=== PATIENT | female | born 1955 | race Caucasian/White ===

== ENCOUNTER 2017-06-07 18:35 | Emergency (ER) | payer OTHER ==
[~2017-06-07] VITALS: Ht 170.2 cm; Wt 122.4 kg
[~2017-06-07 18:35] MED LIST: ADVIL200 MG OR; BACLOFEN10 MG PO; BUSPAR5 MG PO; CORRECTOL100 MG OR; CYMBALTA60 MG PO; DONEPEZIL5 MG PO; GABAPENTIN300 MG PO; GLUCOPHAGE1000 MG PO; GLYBURIDE/METFO1 TA1 PO; IBUPROFEN600 MG PO; LORTAB 10 PO; LORTAB 5 OR; LYRICA75 MG PO; MECLIZINE HCL25 MG PO; MELOXICAM7.5 MG PO; METFORMIN1000 MG PO; MIRALAX3350 NF PO; PERCOCET 5/325M1 TAB OR; PERCOCET 5/325M1 TAB PO; PRILOSEC40 MG PO; PROMETHAZINE25 M1 RE; PROVENTIL HFA INH; ROBAXIN-750750 MG PO; SPIRIVA IN; STOOL SOFTE1 PO; TENORMIN25 MG PO; TRAZODONE150 MG PO; TYLENOL500 MG OR; ULTRAM50 M1 PO; ZANAFLEX4 MG PO; ZOCOR10 MG PO; ZOFRAN8 MG PO; ZOLOFT100 MG PO; ZOVIRAX400 MG PO
[2017-06-07] MEDS ORDERED: TRAZODONE50 MG PO (19:01)
[2017-06-07] MEDS ORDERED: AMOXICILLIN500 MG PO (19:20)
[2017-06-07] MEDS ORDERED: LORTAB 10-325 M1 TAB PO (19:20)
[2017-06-07 19:29] VITALS: BP 129/71
== END 2017-06-07 19:29 | disposition home or self-care (01) | DRG 159 ==
LOC: ED 18:35
DX: K04.7 Periapical abscess without sinus (principal); I10 Essential (primary) hypertension; K44.9 Diaphragmatic hernia without obstruction or gangrene; K59.00 Constipation, unspecified; E11.9 Type 2 diabetes mellitus without complications; Z85.43 Personal history of malignant neoplasm of ovary; Z85.048 Personal history of other malignant neoplasm of rectum, rectosigmoid junction, and anus; Z92.21 Personal history of antineoplastic chemotherapy

== ENCOUNTER 2019-05-26 13:13 | Inpatient (IN) | payer OTHER ==
[~2019-05-26] VITALS: Ht 170.2 cm; Wt 116.8 kg
[~2019-05-26 13:13] MED LIST changes: +AMOXICILLIN500 MG PO; +LORTAB 10-325 M1 TAB PO; +TRAZODONE50 MG PO
[2019-05-26 15:00] LABS: HEMATOCRIT 44.8 % (37.0-47.0); HEMOGLOBIN 14.4 g/dl (12.0-16.0); IMMATURE GRANULOCYTES 0.5 % (0.0-5.0); MEAN CELL VOLUME 92.4 fL CALC (80.0-100.0); MEAN CORPUSCULAR HGB 29.7 pG CALC (26.0-32.0); MEAN CORPUSCULAR HGB CONC 32.1 g/L CALC (32.0-36.0); NEUT# 13.54 thou/uL (2.00-7.15); RED BLOOD COUNT 4.85 mill/uL (4.20-5.60); RED CELL DISTRI WIDTH 13.1 % (11.5-15.5)
[2019-05-26 15:23] LABS: ALKALINE PHOSPHATASE 105 u/l (38-126); BUN 9 mg/dL (8-23); BUN/CREATININE RATIO 16 (12-20 (CALC)); CHLORIDE 101 mmol/l (95-108); CREATININE 0.6 mg/dL (0.5-1.0); GFR > 60 ML/MIN (>=60 (CALC)); GFR FOR AFR.AMER. > 60 ML/MIN (>=60 (CALC)); POTASSIUM 4.4 mmol/l (3.5-5.1); SGOT/AST 30 u/l (9-36); SODIUM 141 mmol/l (137-146); TOTAL PROTEIN 8.8 g/dL (6.3-8.2)
[2019-05-26 15:24] LABS: ANION GAP 19 (6-22 (CALC)); BILIRUBIN, TOTAL 0.5 mg/dL (0.0-1.4); CARBON DIOXIDE 25 mmol/l (22-30)
[2019-05-26 15:30] LABS: D-DIMER 0.92 mg/L (0.19-0.60); PROTHROMBIN TIME 10.8 SECONDS (9.0-12.5)
[2019-05-26 15:34] LABS: MYOGLOBIN 241 ng/mL (0 - 62)
[2019-05-26 15:48] LABS: URINE BILIRUBIN - DIPSTICK NEGATIVE (NEGATIVE); URINE BLOOD DIPSTICK NEGATIVE (NEGATIVE); URINE COLOR YELLOW; URINE GLUCOSE - DIPSTICK NEGATIVE (NEGATIVE); URINE KETONE 15 mg/dL (NEGATIVE); URINE LEUK ESTERASE TRACE (NEGATIVE); URINE NITRITE - DIPSTICK NEGATIVE (Negative); URINE PH 5.5 (4.5-8.0); URINE PROTEIN - DIPSTICK TRACE mg/dL (NEG-TRACE); URINE SPECIFIC GRAVITY <=1.005; URINE UROBILINOGEN - DIPSTICK 0.2 E.U./dL (0.2)
[2019-05-26 20:37] VITALS: BP 136/77
[2019-05-26] MEDS ORDERED: GABAPENTIN300 M2 PO (20:57)
[2019-05-26] MEDS ORDERED: TENORMIN PO (20:58)
[2019-05-26] MEDS ORDERED: ASPIRIN 81 LOW81 MG PO (20:59)
[2019-05-26] MEDS ORDERED: LISINOP/HCTZ1 TAB PO (20:59)
[2019-05-26] MEDS ORDERED: BACLOFEN20 MG PO (21:00)
[2019-05-26] MEDS ORDERED: INVOKANA300 MG PO (21:01)
[2019-05-26] MEDS ORDERED: TRAZODONE HYDR150 MG PO (21:02)
[2019-05-26] MEDS ORDERED: GLYBURIDE/METFO1 TA1 PO (21:02)
[2019-05-26] MEDS ORDERED: MECLIZINE12.5 M1 PO (21:05)
[2019-05-26] MEDS ORDERED: METRONIDAZO1 PO (21:05)
[2019-05-26] MEDS ORDERED: [UNRECOGNIZED DRUG - CODE] PO (21:06)
[2019-05-26] MEDS ORDERED: ZOVIRAX400 MG PO (21:07)
[2019-05-26] MEDS ORDERED: ZOFRAN8 MG PO (21:08)
[2019-05-26] MEDS ORDERED: LIPITOR40 M1 PO (21:11)
[2019-05-26] MEDS ORDERED: RANITIDINE150 M1 PO (21:12)
[2019-05-26] MEDS ORDERED: TOPIRAMATE PO (21:12)
[2019-05-26] MEDS ORDERED: IBUPROFEN600 MG PO (21:13)
[2019-05-27] VITALS: BP 122/50
[2019-05-27 04:00] VITALS: BP 118/43
[2019-05-27 05:47] LABS: HEMATOCRIT 41.4 % (37.0-47.0); HEMOGLOBIN 13.1 g/dl (12.0-16.0); IMMATURE GRANULOCYTES 0.7 % (0.0-5.0); MEAN CELL VOLUME 92.8 fL CALC (80.0-100.0); MEAN CORPUSCULAR HGB 29.4 pG CALC (26.0-32.0); MEAN CORPUSCULAR HGB CONC 31.6 g/L CALC (32.0-36.0); NEUT# 17.69 thou/uL (2.00-7.15); RED BLOOD COUNT 4.46 mill/uL (4.20-5.60); RED CELL DISTRI WIDTH 13.2 % (11.5-15.5)
[2019-05-27 06:00] LABS: ANION GAP 18 (6-22 (CALC)); BUN 13 mg/dL (8-23); BUN/CREATININE RATIO 19 (12-20 (CALC)); CARBON DIOXIDE 24 mmol/l (22-30); CHLORIDE 100 mmol/l (95-108); CREATININE 0.7 mg/dL (0.5-1.0); GFR > 60 ML/MIN (>=60 (CALC)); GFR FOR AFR.AMER. > 60 ML/MIN (>=60 (CALC)); SODIUM 138 mmol/l (137-146)
[2019-05-27 07:19] VITALS: BP 125/57
[2019-05-27 11:20] VITALS: BP 114/62
[2019-05-27 15:40] VITALS: BP 135/62
[2019-05-27 19:35] VITALS: BP 135/73
[2019-05-28] VITALS (7 sets, daily range): BP systolic 94–145; BP diastolic 43–75
[2019-05-28 05:26] LABS: HEMATOCRIT 38.5 % (37.0-47.0); HEMOGLOBIN 12.3 g/dl (12.0-16.0); IMMATURE GRANULOCYTES 0.8 % (0.0-5.0); MEAN CELL VOLUME 93.9 fL CALC (80.0-100.0); MEAN CORPUSCULAR HGB CONC 31.9 g/L CALC (32.0-36.0); RED CELL DISTRI WIDTH 13.6 % (11.5-15.5)
[2019-05-28 05:32] LABS: ANION GAP 15 (6-22 (CALC)); BUN 18 mg/dL (8-23); BUN/CREATININE RATIO 24 (12-20 (CALC)); CARBON DIOXIDE 26 mmol/l (22-30); CHLORIDE 104 mmol/l (95-108); CREATININE 0.8 mg/dL (0.5-1.0); GFR > 60 ML/MIN (>=60 (CALC)); GFR FOR AFR.AMER. > 60 ML/MIN (>=60 (CALC)); POTASSIUM 4.4 mmol/l (3.5-5.1); SODIUM 140 mmol/l (137-146)
[2019-05-28 06:05] LABS: MANUAL DIFFERENTIAL YES; PLATELET COUNT 526 thou/uL (130-400)
[2019-05-28 06:07] LABS: BAND 2 % (0-8)
[2019-05-28 19:51] LABS: C. DIFFICILE TOXIN A&B NEGATIVE (NEGATIVE)
[2019-05-29 04:10] VITALS: BP 110/53
[2019-05-29 05:53] LABS: HEMATOCRIT 40.1 % (37.0-47.0); HEMOGLOBIN 12.7 g/dl (12.0-16.0); IMMATURE GRANULOCYTES 0.8 % (0.0-5.0); MEAN CELL VOLUME 94.8 fL CALC (80.0-100.0); MEAN CORPUSCULAR HGB CONC 31.7 g/L CALC (32.0-36.0); NEUT# 18.95 thou/uL (2.00-7.15); RED BLOOD COUNT 4.23 mill/uL (4.20-5.60); RED CELL DISTRI WIDTH 13.6 % (11.5-15.5)
[2019-05-29 06:04] LABS: ANION GAP 14 (6-22 (CALC)); BUN 17 mg/dL (8-23); BUN/CREATININE RATIO 27 (12-20 (CALC)); CARBON DIOXIDE 26 mmol/l (22-30); CHLORIDE 105 mmol/l (95-108); CREATININE 0.6 mg/dL (0.5-1.0); GFR > 60 ML/MIN (>=60 (CALC)); GFR FOR AFR.AMER. > 60 ML/MIN (>=60 (CALC)); MAGNESIUM 1.8 mg/dL (1.6-2.3); POTASSIUM 5.1 mmol/l (3.5-5.1); SODIUM 140 mmol/l (137-146)
[2019-05-29 07:50] VITALS: BP 93/43
[2019-05-29 10:45] VITALS: BP 132/53
[2019-05-29 15:15] VITALS: BP 105/69
[2019-05-29 19:39] VITALS: BP 124/63
[2019-05-30 00:45] VITALS: BP 130/68
[2019-05-30 04:32] VITALS: BP 109/66
[2019-05-30 05:43] LABS: HEMATOCRIT 41.1 % (37.0-47.0); MEAN CELL VOLUME 93.4 fL CALC (80.0-100.0); MEAN CORPUSCULAR HGB 29.5 pG CALC (26.0-32.0); MEAN CORPUSCULAR HGB CONC 31.6 g/L CALC (32.0-36.0); RED BLOOD COUNT 4.4 mill/uL (4.20-5.60); RED CELL DISTRI WIDTH 13.3 % (11.5-15.5)
[2019-05-30 05:58] LABS: ANION GAP 17 (6-22 (CALC)); BUN 16 mg/dL (8-23); BUN/CREATININE RATIO 26 (12-20 (CALC)); CARBON DIOXIDE 25 mmol/l (22-30); CHLORIDE 102 mmol/l (95-108); CREATININE 0.6 mg/dL (0.5-1.0); GFR > 60 ML/MIN (>=60 (CALC)); GFR FOR AFR.AMER. > 60 ML/MIN (>=60 (CALC)); POTASSIUM 4.7 mmol/l (3.5-5.1); SODIUM 139 mmol/l (137-146)
[2019-05-30 08:50] VITALS: BP 147/68
[2019-05-30] MEDS ORDERED: BIOTUSSIN PO (10:54)
[2019-05-30] MEDS ORDERED: METRONIDAZOL500 MG PO (10:55)
[2019-05-30] MEDS ORDERED: Levaquin PO (10:55)
[2019-05-30] MEDS ORDERED: PREDNISONE10 MG PO (10:58)
[2019-05-30 11:10] VITALS: BP 107/68
== END 2019-05-30 13:39 | disposition home or self-care (01) | DRG 190 ==
LOC: ED 13:13 → ED-I 17:07 → ED 17:14 → MS2 17:15
PROVIDERS: Internal Medicine; ADMIT Internal Medicine; ATTEND Internal Medicine
DX: J44.1 Chronic obstructive pulmonary disease with (acute) exacerbation (principal); J96.01 Acute respiratory failure with hypoxia; J20.9 Acute bronchitis, unspecified; J44.0 Chronic obstructive pulmonary disease with (acute) lower respiratory infection; I10 Essential (primary) hypertension; E11.40 Type 2 diabetes mellitus with diabetic neuropathy, unspecified; K52.9 Noninfective gastroenteritis and colitis, unspecified; G47.33 Obstructive sleep apnea (adult) (pediatric); D72.829 Elevated white blood cell count, unspecified; D47.3 Essential (hemorrhagic) thrombocythemia; Z79.899 Other long term (current) drug therapy; Z79.4 Long term (current) use of insulin; Z86.73 Personal history of transient ischemic attack (TIA), and cerebral infarction without residual deficits; Z85.43 Personal history of malignant neoplasm of ovary; Z85.048 Personal history of other malignant neoplasm of rectum, rectosigmoid junction, and anus
CPT/HCPCS: Q9967

== ENCOUNTER 2020-11-20 16:02 | Observation (INO) | payer OTHER ==
[~2020-11-20] VITALS: Ht 170.2 cm; Wt 122.0 kg
[~2020-11-20 16:02] MED LIST changes: +ASPIRIN 81 LOW81 MG PO; +BACLOFEN20 MG PO; +BIOTUSSIN PO; +GABAPENTIN300 M2 PO; +INVOKANA300 MG PO; +LIPITOR40 M1 PO; +LISINOP/HCTZ1 TAB PO; +Levaquin PO; +MECLIZINE12.5 M1 PO; +METRONIDAZO1 PO; +METRONIDAZOL500 MG PO; +PREDNISONE10 MG PO; +RANITIDINE150 M1 PO; +TENORMIN PO; +TOPIRAMATE PO; +TRAZODONE HYDR150 MG PO; +[UNRECOGNIZED DRUG - CODE] PO
[2020-11-20 16:54] LABS: HEMATOCRIT 43.7 % (37.0-47.0); HEMOGLOBIN 13.9 g/dl (12.0-16.0); IMMATURE GRANULOCYTES 0.4 % (0.0-5.0); MEAN CELL VOLUME 94.8 fL CALC (80.0-100.0); MEAN CORPUSCULAR HGB 30.2 pG CALC (26.0-32.0); MEAN CORPUSCULAR HGB CONC 31.8 g/dL CAL (32.0-36.0); NEUT# 12.5 thou/uL (2.00-7.15); RED BLOOD COUNT 4.61 mill/uL (4.20-5.60); RED CELL DISTRI WIDTH 13.2 % (11.5-15.5)
[2020-11-20 17:27] LABS: ALBUMIN 5.1 g/dL (3.2-5.0); ALKALINE PHOSPHATASE 82 u/l (38-126); ANION GAP 17 (6-22 (CALC)); BILIRUBIN, TOTAL 0.6 mg/dL (0.0-1.4); BUN 14 mg/dL (8-23); BUN/CREATININE RATIO 18 (12-20 (CALC)); CARBON DIOXIDE 23 mmol/l (22-30); CHLORIDE 102 mmol/l (95-108); CREATININE 0.8 mg/dL (0.5-1.0); GFR > 60 ML/MIN (>=60 (CALC)); GFR FOR AFR.AMER. > 60 ML/MIN (>=60 (CALC)); POTASSIUM 3.8 mmol/l (3.5-5.1); SGOT/AST 36 u/l (9-36); SODIUM 138 mmol/l (137-146); TOTAL PROTEIN 8.9 g/dL (6.3-8.2)
[2020-11-20 17:39] LABS: MYOGLOBIN 47 ng/mL (0 - 62)
[2020-11-20 19:44] LABS: URINE BILIRUBIN - DIPSTICK NEGATIVE (NEGATIVE); URINE BLOOD DIPSTICK NEGATIVE (NEGATIVE); URINE COLOR YELLOW; URINE GLUCOSE - DIPSTICK NEGATIVE (NEGATIVE); URINE KETONE NEGATIVE (NEGATIVE); URINE LEUK ESTERASE NEGATIVE (NEGATIVE); URINE NITRITE - DIPSTICK NEGATIVE (Negative); URINE PROTEIN - DIPSTICK NEGATIVE (NEG-TRACE); URINE UROBILINOGEN - DIPSTICK 0.2 E.U./dL (0.2)
[2020-11-20 23:00] VITALS: BP 158/87
[2020-11-21 04:30] VITALS: BP 120/75
[2020-11-21 06:14] LABS: HEMOGLOBIN 12.8 g/dl (12.0-16.0); IMMATURE GRANULOCYTES 0.4 % (0.0-5.0); MEAN CELL VOLUME 95.9 fL CALC (80.0-100.0); MEAN CORPUSCULAR HGB 30.7 pG CALC (26.0-32.0); NEUT# 8.82 thou/uL (2.00-7.15); RED BLOOD COUNT 4.17 mill/uL (4.20-5.60); RED CELL DISTRI WIDTH 13.2 % (11.5-15.5)
[2020-11-21 06:39] LABS: ALKALINE PHOSPHATASE 65 u/l (38-126); ANION GAP 14 (6-22 (CALC)); BILIRUBIN, TOTAL 0.7 mg/dL (0.0-1.4); BUN 13 mg/dL (8-23); BUN/CREATININE RATIO 18 (12-20 (CALC)); CALCULATED LDLCHOLESTEROL 26 mg/dL (62-129 (CALC)); CARBON DIOXIDE 25 mmol/l (22-30); CHLORIDE 103 mmol/l (95-108); CHOLESTEROL HDL RATIO 2.4 (<4.4 (CALC)); CREATININE 0.8 mg/dL (0.5-1.0); GFR > 60 ML/MIN (>=60 (CALC)); GFR FOR AFR.AMER. > 60 ML/MIN (>=60 (CALC)); HDL CHOLESTEROL 42 mg/dL (>=40); MAGNESIUM 1.6 mg/dL (1.6-2.3); POTASSIUM 3.7 mmol/l (3.5-5.1); SGOT/AST 30 u/l (9-36); SODIUM 137 mmol/l (137-146); TOTAL CHOLESTEROL 99 mg/dl (0-199); TOTAL TRIGLYCERIDES 154 mg/dl (30-149); VLDL CHOLESTROL 31 mg/dl (1-41 (CALC))
[2020-11-21 06:41] LABS: TOTAL PROTEIN 6.9 g/dL (6.3-8.2)
[2020-11-21 07:36] VITALS: BP 100/62
[2020-11-21 09:12] LABS: AMYLASE 70 u/l (30-110); LIPASE 146 u/l (23-300)
[2020-11-21 11:12] VITALS: BP 123/78
[2020-11-21 16:11] VITALS: BP 108/56
[2020-11-21 20:00] VITALS: BP 98/59
[2020-11-21 23:50] VITALS: BP 82/50
[2020-11-22 03:50] VITALS: BP 96/59
[2020-11-22 05:21] LABS: ALBUMIN 3.8 g/dL (3.2-5.0); ALKALINE PHOSPHATASE 56 u/l (38-126); ANION GAP 14 (6-22 (CALC)); BILIRUBIN, TOTAL 0.5 mg/dL (0.0-1.4); BUN 12 mg/dL (8-23); BUN/CREATININE RATIO 17 (12-20 (CALC)); CARBON DIOXIDE 24 mmol/l (22-30); CHLORIDE 106 mmol/l (95-108); CREATININE 0.7 mg/dL (0.5-1.0); GFR > 60 ML/MIN (>=60 (CALC)); GFR FOR AFR.AMER. > 60 ML/MIN (>=60 (CALC)); POTASSIUM 3.7 mmol/l (3.5-5.1); SGOT/AST 36 u/l (9-36); SODIUM 139 mmol/l (137-146); TOTAL PROTEIN 6.5 g/dL (6.3-8.2)
[2020-11-22 05:33] LABS: HEMATOCRIT 38.2 % (37.0-47.0); HEMOGLOBIN 12.2 g/dl (12.0-16.0); IMMATURE GRANULOCYTES 0.4 % (0.0-5.0); MEAN CELL VOLUME 94.1 fL CALC (80.0-100.0); MEAN CORPUSCULAR HGB CONC 31.9 g/dL CAL (32.0-36.0); NEUT# 7.67 thou/uL (2.00-7.15); RED BLOOD COUNT 4.06 mill/uL (4.20-5.60)
[2020-11-22 08:30] VITALS: BP 115/65
[2020-11-22 11:45] VITALS: BP 90/50
[2020-11-22] MEDS ORDERED: MECLIZINE25 MG PO (12:08)
[2020-11-22] MEDS ORDERED: PROTONIX20 MG PO (12:08)
== END 2020-11-22 13:42 | disposition home or self-care (01) ==
LOC: ED 16:02 → ED-I 21:31 → ED 21:42 → MS2 21:43 → ED 22:05 → MS2 22:05
PROVIDERS: Emergency Medicine; Nurse Practitioner; ADMIT Internal Medicine; ATTEND Internal Medicine
DX: R55 Syncope and collapse (principal); R42 Dizziness and giddiness; C95.10 Chronic leukemia of unspecified cell type not having achieved remission; K52.9 Noninfective gastroenteritis and colitis, unspecified; R19.7 Diarrhea, unspecified; R06.02 Shortness of breath; I10 Essential (primary) hypertension; E11.40 Type 2 diabetes mellitus with diabetic neuropathy, unspecified; Z86.73 Personal history of transient ischemic attack (TIA), and cerebral infarction without residual deficits; Z85.43 Personal history of malignant neoplasm of ovary; Z85.048 Personal history of other malignant neoplasm of rectum, rectosigmoid junction, and anus; Z20.822 Contact with and (suspected) exposure to COVID-19
CPT/HCPCS: G0378; Q9967; S0164

== ENCOUNTER 2021-03-18 11:13 | Observation (INO) | payer OTHER ==
[~2021-03-18] VITALS: Ht 170.2 cm; Wt 125.0 kg
[~2021-03-18 11:13] MED LIST changes: +MECLIZINE25 MG PO; +PROTONIX20 MG PO
--- NOTE | 2021-03-18 11:16 | NUR ---
TO ROOM VIA WHEELCHAIR IN STABLE CONDITION
[2021-03-18 11:40] LABS: HEMATOCRIT 42.6 % (37.0-47.0); HEMOGLOBIN 13.8 g/dl (12.0-16.0); IMMATURE GRANULOCYTES 0.4 % (0.0-5.0); MEAN CELL VOLUME 94.7 fL CALC (80.0-100.0); MEAN CORPUSCULAR HGB 30.7 pG CALC (26.0-32.0); MEAN CORPUSCULAR HGB CONC 32.4 g/dL CAL (32.0-36.0); NEUT# 13.46 thou/uL (2.00-7.15); RED BLOOD COUNT 4.5 mill/uL (4.20-5.60); RED CELL DISTRI WIDTH 12.7 % (11.5-15.5)
[2021-03-18 12:08] LABS: ALBUMIN 4.2 g/dL (3.2-5.0); ALKALINE PHOSPHATASE 84 u/l (38-126); ANION GAP 13 (6-22 (CALC)); BILIRUBIN, TOTAL 0.4 mg/dL (0.0-1.4); BUN 12 mg/dL (8-23); BUN/CREATININE RATIO 19 (12-20 (CALC)); CARBON DIOXIDE 28 mmol/l (22-30); CHLORIDE 100 mmol/l (95-108); CREATININE 0.7 mg/dL (0.5-1.0); GFR > 60 ML/MIN (>=60 (CALC)); GFR FOR AFR.AMER. > 60 ML/MIN (>=60 (CALC)); LIPASE 179 u/l (23-300); POTASSIUM 4.3 mmol/l (3.5-5.1); SGOT/AST 38 u/l (9-36); SODIUM 137 mmol/l (137-146); TOTAL PROTEIN 7.4 g/dL (6.3-8.2)
--- NOTE | 2021-03-18 13:50 | NUR ---
SBAR PRINTED TO FLOOR
--- NOTE | 2021-03-18 14:21 | NUR ---
ROOM ASSIGNMENT GIVEN AND ANNOUNCED AT NURSING STATION.
--- NOTE | 2021-03-18 15:05 | NUR ---
PATIENT TO ULTRASOUND, AAOX4, NO DISTRESS.
--- NOTE | 2021-03-18 15:08 | NUR ---
BED ASSIGNMENT RECEIVED.
--- NOTE | 2021-03-18 15:41 | NUR ---
REPORT CALLED TO GINO WEI
[2021-03-18 16:02] VITALS: BP 126/74
--- NOTE | 2021-03-18 16:12 | NUR ---
REPORT RECEIVED FROM MEHRDAD IN ED, PT ARRIVED ON UNIT @ 1605 TRANSPORTED VIA W/C BY ED STAFF. ALERT AND ORIENTED X 4, C/O SEVERE CRAMPING ABD PAIN @ 8/10 THAT AGGRAVATES WITH MOVEMENT, SETTLED IN BED AND ORIENTED TO ROOM AND CALL GARCIA, VITAL SIGNS MEASURED AND RECORDRD, ARM BANDS IN PLACE, CALL GARCIA IN REACH.
[2021-03-18] MEDS ORDERED: VITAMIN B COMPL1 TAB (16:35)
[2021-03-18] MEDS ORDERED: VITAMIN D PO (16:37)
[2021-03-18] MEDS ORDERED: MULTIVITAMI9 PO (16:38)
[2021-03-18] MEDS ORDERED: METFORMIN HCL1000 MG PO (16:45)
[2021-03-18] MEDS ORDERED: SPIRIVA HANDIH18 MCG IN (16:49)
[2021-03-18] MEDS ORDERED: PROAIR HFA IN (16:50)
[2021-03-18] MEDS ORDERED: CVS FLUTICASON50 MCG (16:54)
[2021-03-18] MEDS ORDERED: ACYCLOVIR400 MG PO (16:55)
[2021-03-18 19:00] VITALS: BP 119/64
--- NOTE | 2021-03-18 20:00 | NUR ---
PHYSICAL ASSESMENT COMPLETE. PT CURRENTLY C/O OF 07/12 PAIN.MEDICATED WITH PRN PAIN MEDICATION AND ANTI NAUSEA MEDICATION. PT WAITING FOR CT SCAN WITH CONTRAST. PT VOMITTED, 200CC EMESIS PLAN OF CARE REVIEWED, PT DENIES QUESTIONS, VERBALIZES UNDERSTANDING. ITEMS WITHIN REACH, BED LOCKED IN LOW POSITION W/ BEDRAILS UP X2. CALL GARCIA WITHIN REACH, AGREES TO CALL PRN.
--- NOTE | 2021-03-18 22:21 | NUR ---
PT STILL HAS OVERWHELMING NAUSEA. WILL HOLD ORL MEDICATION AT THIS TIME. WAITING FOR RESULTS OF CT SCAN WITH CONTRAST. WILL CONTINUE TO MONITOR.
--- NOTE | 2021-03-18 23:24 | NUR ---
CT SCAN WITH ORAL CONTRAST REVEALED THE POSSIBILITY OF A SMALL BOWEL OBSTRUCTION. PT WAS SLEEPING. PT STATES HER PAIN IS CONTROLLED AT THIS TIME AND WILL CALL PRN. WILL CONTINUE TO MONITOR.
--- NOTE | 2021-03-19 00:45 | NUR ---
PT MEDICATED FOR PAIN. C/O OF SOME DIARRHEA. RESPIRATIONS REGULAR AND UNLABORED. ITEMS REMAIN WITHIN REACH, CALL GARCIA REMAINS WITHIN REACH. BED REMAINS LOCKED AND IN LOW POSITION WITH BEDRAILS UP X2. WILL CONTINUE TO MONITOR.
[2021-03-19 04:00] VITALS: BP 104/60
--- NOTE | 2021-03-19 04:19 | NUR ---
PT RESTING IN BED, NO SIGNS OF DISTRESS NOTED, RESP EVEN AND UNLABORED. PT VOICES NO NEEDS OR COMPLAINTS AT THIS TIME. CALL LIGHT IN REACH, CONTINUE TO MONITOR.
--- NOTE | 2021-03-19 05:35 | NUR ---
PTS PAIN HAS SUBSIDED. NO C/O OF PAIN IN THIS AM. WILL CONTINUE TO MONITOR.
[2021-03-19 05:42] LABS: HEMATOCRIT 38.4 % (37.0-47.0); HEMOGLOBIN 12.5 g/dl (12.0-16.0); MEAN CELL VOLUME 95.3 fL CALC (80.0-100.0); MEAN CORPUSCULAR HGB CONC 32.6 g/dL CAL (32.0-36.0); RED BLOOD COUNT 4.03 mill/uL (4.20-5.60); RED CELL DISTRI WIDTH 12.8 % (11.5-15.5)
[2021-03-19 05:54] LABS: ALBUMIN 3.5 g/dL (3.2-5.0); ALKALINE PHOSPHATASE 64 u/l (38-126); ANION GAP 11 (6-22 (CALC)); BILIRUBIN, TOTAL 0.3 mg/dL (0.0-1.4); BUN 12 mg/dL (8-23); BUN/CREATININE RATIO 19 (12-20 (CALC)); CARBON DIOXIDE 25 mmol/l (22-30); CHLORIDE 104 mmol/l (95-108); CREATININE 0.6 mg/dL (0.5-1.0); GFR > 60 ML/MIN (>=60 (CALC)); GFR FOR AFR.AMER. > 60 ML/MIN (>=60 (CALC)); MAGNESIUM 1.6 mg/dL (1.6-2.3); POTASSIUM 4.1 mmol/l (3.5-5.1); SGOT/AST 34 u/l (9-36); SODIUM 137 mmol/l (137-146); TOTAL PROTEIN 6.2 g/dL (6.3-8.2)
--- NOTE | 2021-03-19 07:13 | NUR ---
PT CONSENTED TO RECEIVE PNEUMONIA VAX. HAD PNEUMOVAX IN 2018, NOT INDICATED UNTIL AGE 67.
--- NOTE | 2021-03-19 07:59 | NUR ---
Pt was screened by [facility]. No [facility] services warranted at this time.
[2021-03-19 08:03] VITALS: BP 147/75
[2021-03-19 08:13] LABS: URINE BILIRUBIN - DIPSTICK NEGATIVE (NEGATIVE); URINE BLOOD DIPSTICK NEGATIVE (NEGATIVE); URINE COLOR YELLOW; URINE GLUCOSE - DIPSTICK NEGATIVE (NEGATIVE); URINE KETONE NEGATIVE (NEGATIVE); URINE LEUK ESTERASE NEGATIVE (NEGATIVE); URINE PH 5.5 (4.5-8.0); URINE PROTEIN - DIPSTICK NEGATIVE (NEG-TRACE); URINE SPECIFIC GRAVITY 1.025; URINE UROBILINOGEN - DIPSTICK 0.2 E.U./dL (0.2)
[2021-03-19 08:14] LABS: URINE NITRITE - DIPSTICK NEGATIVE (Negative)
[2021-03-19 08:15] VITALS: BP 133/78
--- NOTE | 2021-03-19 08:15 | NUR ---
PATIENT IS RESTING IN SEMI-FOWLERS IN BED. ASSESSMENT DONE. PATIENT IS ALERT AND ORIENT X3. PATIENT STATED PAIN IN ABD 6/10 BUT REFUSED PAIN MEDICATION AT THIS TIME. PATIENT IS NPO. IVF INFUSING WELL. SAFETY PRECAUTIONS REINFORCED AND CALL LIGHT IN REACH.
--- NOTE | 2021-03-19 11:13 | NUR ---
Patient was screened for PT services, patient is not appropriate for Physical Therapy at this time.
--- NOTE | 2021-03-19 11:41 | NUR ---
PATIENT IS RESTING ON HER LEFT SIDE IN BED WITH NO DISTRESS NOTED. PATIENT DENIES PAIN OR NEEDS AT THIS TIME. CALL LIGHT IN REACH.
[2021-03-19 15:12] VITALS: BP 132/75
--- NOTE | 2021-03-19 16:02 | NUR ---
PATIENT IS RESTING ON HER RIGHT SIDE WITH NO DISTRESS NOTED. PATIENT DENIES PAIN OR NEEDS AT THIS TIME. CALL LIGHT IN REACH.
[2021-03-19 19:00] VITALS: BP 130/76
--- NOTE | 2021-03-19 20:17 | NUR ---
PHYSICAL ASSESMENT COMPLETE. PT CURRENTLY DENIES PAIN OR DISCOMFORT. SCHEDULED MEDICATIONS AND PRN MEDICATION ADMINISTERED, SEE E-MAR. PT DENIES ANY NEEDS AT THIS TIME. PLAN OF CARE REVIEWED, PT DENIES QUESTIONS, VERBALIZES UNDERSTANDING. ITEMS WITHIN REACH, BED LOCKED IN LOW POSITION W/ BEDRAILS UP X2. CALL GARCIA WITHIN REACH, AGREES TO CALL PRN.
--- NOTE | 2021-03-20 | NUR ---
PT LAYING IN BED WITH EYES CLOSED, APPEARS TO BE SLEEPING, APPEARS COMFORTABLE AND IN NO DISTRESS. RESPIRATIONS REGULAR AND UNLABORED. ITEMS REMAIN WITHIN REACH, CALL GARCIA REMAINS WITHIN REACH. BED REMAINS LOCKED AND IN LOW POSITION WITH BEDRAILS UP X2. WILL CONTINUE TO MONITOR.
[2021-03-20 04:00] VITALS: BP 117/62
[2021-03-20 05:06] LABS: ALBUMIN 3.3 g/dL (3.2-5.0); ALKALINE PHOSPHATASE 61 u/l (38-126); ANION GAP 10 (6-22 (CALC)); BILIRUBIN, TOTAL 0.2 mg/dL (0.0-1.4); BUN 7 mg/dL (8-23); BUN/CREATININE RATIO 11 (12-20 (CALC)); CARBON DIOXIDE 27 mmol/l (22-30); CHLORIDE 105 mmol/l (95-108); CREATININE 0.6 mg/dL (0.5-1.0); GFR > 60 ML/MIN (>=60 (CALC)); GFR FOR AFR.AMER. > 60 ML/MIN (>=60 (CALC)); HEMATOCRIT 37.3 % (37.0-47.0); HEMOGLOBIN 11.8 g/dl (12.0-16.0); IMMATURE GRANULOCYTES 0.1 % (0.0-5.0); MEAN CELL VOLUME 97.1 fL CALC (80.0-100.0); MEAN CORPUSCULAR HGB 30.7 pG CALC (26.0-32.0); MEAN CORPUSCULAR HGB CONC 31.6 g/dL CAL (32.0-36.0); NEUT# 8.09 thou/uL (2.00-7.15); POTASSIUM 3.8 mmol/l (3.5-5.1); RED BLOOD COUNT 3.84 mill/uL (4.20-5.60); SGOT/AST 51 u/l (9-36); SODIUM 139 mmol/l (137-146); TOTAL PROTEIN 5.9 g/dL (6.3-8.2)
[2021-03-20 07:22] VITALS: BP 116/46
--- NOTE | 2021-03-20 08:35 | NUR ---
SHIFT CHANGE REPORT, PT AWAKE ALERT AND ORIENTED, C/O ACHING HEADACHE @ 8/10 BUT WAS GIVEN TYLENOL EARLIER, IVF INFUSING, CALL GARCIA IN REACH AND BED LOCKED IN LOWEST POSITION.
--- NOTE | 2021-03-20 08:39 | NUR ---
PT REPORTED RELIEF OF HEADACHE AFTER EATING MEAL
--- NOTE | 2021-03-20 09:25 | NUR ---
Pt unsure if she has received pneumococcal vaccination. [place] [facility] reports pt received Pneumovax Jul 2018. No indication for re-vaccination until pt reaches age 67.
[2021-03-20] MEDS ORDERED: DICYCLOMINE10 MG PO (10:57)
--- NOTE | 2021-03-20 13:20 | NUR ---
Discharge instructions given. Patient verbalizes understanding of same. Discharged in stable condition via Wheelchair to Home with family. All belongings sent with pt.
== END 2021-03-20 13:14 | disposition home or self-care (01) ==
LOC: ED 11:13 → ED-I 12:56 → ED 13:30 → MS2 13:31
PROVIDERS: Family Medicine; Nurse Practitioner; ADMIT Internal Medicine; ATTEND Internal Medicine
DX: R10.84 Generalized abdominal pain (principal); R11.2 Nausea with vomiting, unspecified; K52.9 Noninfective gastroenteritis and colitis, unspecified; K59.00 Constipation, unspecified; I10 Essential (primary) hypertension; E11.40 Type 2 diabetes mellitus with diabetic neuropathy, unspecified; D72.829 Elevated white blood cell count, unspecified; E66.01 Morbid (severe) obesity due to excess calories; Z68.41 Body mass index [BMI] 40.0-44.9, adult; Z85.43 Personal history of malignant neoplasm of ovary; Z85.048 Personal history of other malignant neoplasm of rectum, rectosigmoid junction, and anus; Z79.84 Long term (current) use of oral hypoglycemic drugs; Z86.73 Personal history of transient ischemic attack (TIA), and cerebral infarction without residual deficits; Z20.822 Contact with and (suspected) exposure to COVID-19; Z90.81 Acquired absence of spleen
CPT/HCPCS: G0378; J1650; Q9967; S0164

== ENCOUNTER 2021-07-22 18:30 | Emergency (ER) | payer OTHER ==
[~2021-07-22] VITALS: Ht 170.2 cm; Wt 123.6 kg
[~2021-07-22 18:30] MED LIST changes: +ACYCLOVIR400 MG PO; +CVS FLUTICASON50 MCG; +DICYCLOMINE10 MG PO; +METFORMIN HCL1000 MG PO; +MULTIVITAMI9 PO; +PROAIR HFA IN; +SPIRIVA HANDIH18 MCG IN; +VITAMIN B COMPL1 TAB; +VITAMIN D PO
[2021-07-22 20:41] LABS: HEMOGLOBIN 13.1 g/dl (12.0-16.0); IMMATURE GRANULOCYTES 0.2 % (0.0-5.0); MEAN CELL VOLUME 94.3 fL CALC (80.0-100.0); MEAN CORPUSCULAR HGB 30.1 pG CALC (26.0-32.0); NEUT# 11.31 thou/uL (2.00-7.15); RED BLOOD COUNT 4.35 mill/uL (4.20-5.60); RED CELL DISTRI WIDTH 12.5 % (11.5-15.5)
[2021-07-22 20:55] LABS: ALKALINE PHOSPHATASE 88 u/l (38-126); ANION GAP 14 (6-22 (CALC)); BUN 12 mg/dL (8-23); BUN/CREATININE RATIO 14 (12-20 (CALC)); CARBON DIOXIDE 25 mmol/l (22-30); CHLORIDE 100 mmol/l (95-108); CREATININE 0.9 mg/dL (0.5-1.0); GFR > 60 ML/MIN (>=60 (CALC)); GFR FOR AFR.AMER. > 60 ML/MIN (>=60 (CALC)); POTASSIUM 3.7 mmol/l (3.5-5.1); SGOT/AST 49 u/l (9-36); SODIUM 136 mmol/l (137-146)
[2021-07-22 20:56] LABS: BILIRUBIN, TOTAL 0.3 mg/dL (0.0-1.4); D-DIMER 0.93 mg/L (0.19-0.60); TOTAL PROTEIN 7.3 g/dL (6.3-8.2)
[2021-07-22 21:02] LABS: PROTHROMBIN TIME 10.1 SECONDS (9.0-12.5)
[2021-07-22 21:03] LABS: MYOGLOBIN 39 ng/mL (0 - 62)
[2021-07-22] MEDS ORDERED: PREDNISONE50 MG PO (21:57)
[2021-07-22 22:03] VITALS: BP 125/56
== END 2021-07-22 22:11 | disposition home or self-care (01) ==
LOC: ED 18:30
PROVIDERS: Family Medicine
DX: J44.1 Chronic obstructive pulmonary disease with (acute) exacerbation (principal); I10 Essential (primary) hypertension; E11.9 Type 2 diabetes mellitus without complications; E66.01 Morbid (severe) obesity due to excess calories; Z90.81 Acquired absence of spleen; Z85.43 Personal history of malignant neoplasm of ovary; Z86.73 Personal history of transient ischemic attack (TIA), and cerebral infarction without residual deficits; Z85.048 Personal history of other malignant neoplasm of rectum, rectosigmoid junction, and anus; Z79.84 Long term (current) use of oral hypoglycemic drugs; Z20.822 Contact with and (suspected) exposure to COVID-19

== ENCOUNTER 2022-04-14 07:02 | Day surgery (SDC) | payer OTHER ==
[~2022-04-14] VITALS: Ht 170.2 cm; Wt 123.4 kg
[~2022-04-14 07:02] MED LIST changes: +PREDNISONE50 MG PO; +TRULICITY3 MG/0.5 M
[2022-04-14 11:36] VITALS: BP 121/60
== END 2022-04-14 09:10 | disposition home or self-care (01) ==
LOC: ORM 07:02
PROVIDERS: ATTEND Physical Medicine & Rehabilitation
DX: M47.816 Spondylosis without myelopathy or radiculopathy, lumbar region (principal); M47.812 Spondylosis without myelopathy or radiculopathy, cervical region; G89.4 Chronic pain syndrome; M79.7 Fibromyalgia; M62.838 Other muscle spasm; M51.34 Other intervertebral disc degeneration, thoracic region

== ENCOUNTER 2022-05-12 07:14 | Day surgery (SDC) | payer MEDICARE, MEDICAID ==
[~2022-05-12] VITALS: Ht 170.2 cm; Wt 123.4 kg
[2022-05-12 09:54] VITALS: BP 130/84
== END 2022-05-12 09:42 | disposition home or self-care (01) ==
LOC: ORM 07:14
PROVIDERS: ATTEND Physical Medicine & Rehabilitation
DX: M47.816 Spondylosis without myelopathy or radiculopathy, lumbar region (principal)

== ENCOUNTER 2022-07-07 07:12 | Day surgery (SDC) | payer MEDICARE, MEDICAID ==
[~2022-07-07] VITALS: Ht 170.2 cm; Wt 118.8 kg
[2022-07-07 09:44] VITALS: BP 110/59
== END 2022-07-07 09:53 | disposition home or self-care (01) ==
LOC: ORM 07:12
PROVIDERS: ATTEND Physical Medicine & Rehabilitation
DX: M47.816 Spondylosis without myelopathy or radiculopathy, lumbar region (principal); G89.4 Chronic pain syndrome

== ENCOUNTER 2022-08-04 06:47 | Day surgery (SDC) | payer MEDICARE, MEDICAID ==
[~2022-08-04] VITALS: Ht 170.2 cm; Wt 118.8 kg
[~2022-08-04 06:47] MED LIST changes: +JANUVIA100 MG PO; +LANTUS SOLOSTAR SC; +LISINOPRIL10 MG PO
[2022-08-04 09:07] VITALS: BP 121/76
== END 2022-08-04 09:16 | disposition home or self-care (01) ==
LOC: ORM 06:47
PROVIDERS: ATTEND Physical Medicine & Rehabilitation
DX: M47.816 Spondylosis without myelopathy or radiculopathy, lumbar region (principal)
CPT/HCPCS: J3490

== ENCOUNTER 2022-09-21 15:19 | Emergency (ER) | payer MEDICARE, MEDICAID ==
[~2022-09-21] VITALS: Ht 170.2 cm; Wt 119.0 kg
[2022-09-21 16:32] LABS: BASO% 0.2 % (0-3); EOS% 0.5 % (0-8); HEMATOCRIT 44.1 % (37.0-47.0); HEMOGLOBIN 14.8 g/dl (12.0-16.0); IMMATURE GRANULOCYTES 0.2 % (0.0-5.0); LYMPH% 43.2 % (15-41); MEAN CELL VOLUME 92.5 fL CALC (80.0-100.0); MEAN CORPUSCULAR HGB CONC 33.6 g/dL CAL (32.0-36.0); MONO% 8.9 % (2-13); NEUT# 6.15 thou/uL (2.00-7.15); RED BLOOD COUNT 4.77 mill/uL (4.20-5.60); RED CELL DISTRI WIDTH 12.9 % (11.5-15.5)
[2022-09-21 16:43] LABS: ALBUMIN 4.5 g/dL (3.2-5.0); ALKALINE PHOSPHATASE 104 u/l (38-126); ANION GAP 18 (6-22 (CALC)); BILIRUBIN, TOTAL 0.3 mg/dL (0.0-1.4); BUN 9 mg/dL (8-23); BUN/CREATININE RATIO 10 (12-20 (CALC)); CARBON DIOXIDE 25 mmol/l (22-30); CHLORIDE 100 mmol/l (95-108); CREATININE 0.9 mg/dL (0.5-1.0); GFR FOR AFR.AMER. > 60 ML/MIN (>=60 (CALC)); GFR OTHER RACES > 60 ML/MIN (>=60 (CALC)); SGOT/AST 76 u/l (9-36); SODIUM 138 mmol/l (137-146); TOTAL PROTEIN 7.8 g/dL (6.3-8.2)
[2022-09-21 16:45] LABS: POTASSIUM 4.5 mmol/l (3.5-5.1)
[2022-09-21] MEDS ORDERED: PAXLOVID PO (17:03)
[2022-09-21 17:25] VITALS: BP 133/87
== END 2022-09-21 17:25 | disposition home or self-care (01) ==
LOC: ED 15:19
PROVIDERS: Emergency Medicine
DX: U07.1 COVID-19 (principal); R50.9 Fever, unspecified; J02.9 Acute pharyngitis, unspecified; R05.9 Cough, unspecified; R52 Pain, unspecified; J44.9 Chronic obstructive pulmonary disease, unspecified; E11.9 Type 2 diabetes mellitus without complications; I10 Essential (primary) hypertension; E66.01 Morbid (severe) obesity due to excess calories; Z85.43 Personal history of malignant neoplasm of ovary; Z85.048 Personal history of other malignant neoplasm of rectum, rectosigmoid junction, and anus; Z86.73 Personal history of transient ischemic attack (TIA), and cerebral infarction without residual deficits

== ENCOUNTER 2023-06-08 15:03 | Emergency (ER) | payer MEDICARE, MEDICAID ==
[~2023-06-08] VITALS: Ht 170.2 cm; Wt 114.0 kg
[~2023-06-08 15:03] MED LIST changes: +PAXLOVID PO
[2023-06-08] MEDS ORDERED: MEDDOSEPAK PO (20:20)
[2023-06-08] MEDS ORDERED: VIBRAMYCIN100 M2 PO (20:20)
[2023-06-08] MEDS ORDERED: METHOCARBAMOL500 MG PO (20:20)
[2023-06-08 20:28] VITALS: BP 96/51
== END 2023-06-08 20:32 | disposition home or self-care (01) ==
LOC: ED 15:03
DX: J18.9 Pneumonia, unspecified organism (principal); M54.9 Dorsalgia, unspecified; M79.604 Pain in right leg; M25.561 Pain in right knee; I10 Essential (primary) hypertension; E11.9 Type 2 diabetes mellitus without complications; J44.9 Chronic obstructive pulmonary disease, unspecified; E66.01 Morbid (severe) obesity due to excess calories; Z85.43 Personal history of malignant neoplasm of ovary; Z85.048 Personal history of other malignant neoplasm of rectum, rectosigmoid junction, and anus; Z86.73 Personal history of transient ischemic attack (TIA), and cerebral infarction without residual deficits; Z79.4 Long term (current) use of insulin; Z20.822 Contact with and (suspected) exposure to COVID-19

== ENCOUNTER 2023-08-08 09:15 | Day surgery (SDC) | payer MEDICARE, MEDICAID ==
[~2023-08-08 09:15] MED LIST changes: +LINZESS145 MCG PO; +MEDDOSEPAK PO; +METHOCARBAMOL500 MG PO; +VIBRAMYCIN100 M2 PO
[2023-08-08 12:53] VITALS: BP 112/68
== END 2023-08-08 11:52 | disposition home or self-care (01) ==
LOC: ORM 09:15
PROVIDERS: ATTEND Internal Medicine Gastroenterology
PROC: 0DBP8ZX Excision of Rectum, Via Natural or Artificial Opening Endoscopic, Diagnostic (ICD-10-PCS; principal; 2023-08-08)
PROC: 0DBN8ZX Excision of Sigmoid Colon, Via Natural or Artificial Opening Endoscopic, Diagnostic (ICD-10-PCS; 2023-08-08)
DX: C20 Malignant neoplasm of rectum (principal); K63.5 Polyp of colon; K64.8 Other hemorrhoids; K57.30 Diverticulosis of large intestine without perforation or abscess without bleeding; K56.699 Other intestinal obstruction unspecified as to partial versus complete obstruction; K58.1 Irritable bowel syndrome with constipation; Z85.048 Personal history of other malignant neoplasm of rectum, rectosigmoid junction, and anus